=== PATIENT | female | born 1990 | race African-American/Black ===

== ENCOUNTER 2016-09-23 10:45 | Emergency (ER) | payer OTHER ==
[~2016-09-23] VITALS: Ht 177.8 cm; Wt 99.8 kg
[2016-09-23] MEDS ORDERED: predniSONE 20 MG TABLET PO ONE (11:30)
[2016-09-23] MEDS ORDERED: CEPHALEXIN MONOHYDRATE 500 MG CAPSULE PO ONE (11:30)
[2016-09-23] MEDS ORDERED: CEPHALEXIN MONOHYDRATE 500 MG CAPSULE ONE (11:42)
[2016-09-23] MEDS ORDERED: predniSONE 10 MG TABLET ONE (11:43)
[2016-09-23] MEDS ORDERED: predniSONE 50 MG TABLET ONE (11:43)
== END 2016-09-23 11:40 | disposition home or self-care (01) ==
LOC: ER 10:45
DX: L04.0 Acute lymphadenitis of face, head and neck (principal)
CPT/HCPCS: A4663; J7512